=== PATIENT | male | born 1960 | race Caucasian/White ===

== ENCOUNTER → 2017-07-05 09:14 | Outpatient (CLI) | payer BC, SELFPAY ==
[2017-07-05 10:56] LABS: AST(SGOT) 22 U/L (15-37); Alanine Aminotransfer ALT/SGPT 34 U/L (16-61); Albumin, Serum 3.6 g/dL (3.2-5.0); Alkaline Phosphatase 88 U/L (45-117); Bilirubin, Direct 0.18 mg/dL (0.00-0.30); Cholesterol 85 mg/dL (200); Globulin 3.6 g/dL (2.2-4.2); High Density Lipoprotein 44 mg/dL; Protein, Total 7.2 g/dL (6.4-8.2); Triglycerides 63 mg/dL; Very Low Density Lipoprotein 13 mg/dL (5-40)
== END ==
PROVIDERS: Family Provider Internal Medicine; PCP Internal Medicine; Visit Provider Physician Assistant Medical
DX: E78.5 Hyperlipidemia, unspecified (principal); Z79.899 Other long term (current) drug therapy
CPT/HCPCS: 36415; 80061; 80076

== ENCOUNTER → 2018-01-10 10:18 | Outpatient (CLI) | payer BC, SELFPAY ==
[2018-01-10 12:03] LABS: AST(SGOT) 28 U/L (15-37); Alanine Aminotransfer ALT/SGPT 39 U/L (16-61); Albumin, Serum 3.7 g/dL (3.2-5.0); Alkaline Phosphatase 114 U/L (45-117); Bilirubin, Direct 0.19 mg/dL (0.00-0.30); Cholesterol 106 mg/dL (200); Globulin 3.9 g/dL (2.2-4.2); High Density Lipoprotein 43 mg/dL; Protein, Total 7.6 g/dL (6.4-8.2); Triglycerides 69 mg/dL; Very Low Density Lipoprotein 14 mg/dL (5-40)
== END ==
PROVIDERS: Family Provider Internal Medicine; PCP Internal Medicine; Referring Provider Physician Assistant Medical; Visit Provider Physician Assistant Medical
DX: E78.5 Hyperlipidemia, unspecified (principal); Z79.899 Other long term (current) drug therapy
CPT/HCPCS: 36415; 80061; 80076

== ENCOUNTER → 2018-01-12 12:56 | Outpatient (REF) | payer BC, SELFPAY | LOC: CVS 12:56 | PROVIDERS: Family Provider Internal Medicine; PCP Internal Medicine; Visit Provider Nurse Practitioner Family | DX: R00.2 Palpitations (principal); R42 Dizziness and giddiness | CPT/HCPCS: 93270 ==

== ENCOUNTER → 2018-08-18 | Outpatient (CLI) | payer BC, SELFPAY ==
[2018-01-09 16:19] VITALS: BMI 22.8
--- NOTE | 2018-08-18 15:37 | CT_ITS ---
STUDY: LOW DOSE CT LUNG CANCER SCREENING REASON FOR EXAM: Male, 58 years old. 38 pack-year history stopped 3 years ago. RADIATION DOSAGE (If Supplied By Facility): CTDIvol = ( 2.55 ) mGy, DLP = ( 102.68 ) mGycm TECHNIQUE: No contrast was administered. Low dose technique was utilized (average mAS-38 and kVp 120). 1.25 mm axial source images with a slice interval of 1.25-mm were reconstructed in lung windows. 2.5 mm axial source images with a slice interval of 2.5-mm were reconstructed in lung windows. 5.0 mm axial source images with a slice interval of 5.0-mm were reconstructed in soft tissue windows. Nodule measured using lung windows on PACS and/or independent workstation with automated measurement of minimum and maximum diameter. Nodule measurement reported as average diameter rounded to the nearest whole number. Growth is defined as an increase ins size of greater than 1.5 mm. COMPARISON: Chest, December 31, 2016. NODULES: Total lung nodules (excluding granulomas): 0 Emphysema: No Endobronchial lesion: None Aorta: Normal Coronary arteries: There are coronary artery calcifications. Heart: Normal in size Pulmonary artery: Normal Mediastinal nodes: None Other chest and abdominal findings: There are degenerative changes of the thoracic spine. CT/Low Dose CT Lung Screening IMPRESSION: Lung-RADS category 1 - Continue annual screening with LDCT in 12 months. IMPORTANT NOTES FOR USE: ACR Lung-RADS Version 1.0 Assessment Categories Release Date: July 26, 2013 Category: Coded 0-4 bases on nodule(s) with highest degree of suspicion. Negative screen is defined as categories 1 and 2; a positive screen is defined as categories 3 and 4. Category 3 and 4A nodules that are unchanged on interval CT should be coded as category 2, and individuals returned to screening in 12 months. Category 4X: Category 3 or 4 nodules with additional imaging findings that increase the suspicion of lung cancer, such as spiculation, GGN that doubles in size in 1 year, enlarged lymph notes, etc. Category Modifiers: S (significant finding unrelated to lung cancer) and C (prior history of treated lung cancer) may be added to the 0-4 Lung-RADS Electronically Signed: Jose Mares DO at 23:29 EDT Tel [phone], Service support ,
== END | disposition home or self-care (01) ==
LOC: CT 15:35
PROVIDERS: Family Provider Internal Medicine; PCP Internal Medicine; Visit Provider Nurse Practitioner Family
DX: Z72.0 Tobacco use (principal)
CPT/HCPCS: G0297

== ENCOUNTER → 2018-10-10 | Outpatient (CLI) | payer BC, SELFPAY ==
[2018-08-19 12:11] VITALS: BMI 24.0
[2018-10-10 10:42] LABS: AST(SGOT) 27 U/L (15-37); Alanine Aminotransfer ALT/SGPT 36 U/L (16-61); Albumin, Serum 3.7 g/dL (3.2-5.0); Alkaline Phosphatase 100 U/L (45-117); Bilirubin, Direct 0.13 mg/dL (0.00-0.30); Cholesterol 118 mg/dL (200); Globulin 3.7 g/dL (2.2-4.2); High Density Lipoprotein 43 mg/dL; Protein, Total 7.4 g/dL (6.4-8.2); Triglycerides 70 mg/dL; Very Low Density Lipoprotein 14 mg/dL (5-40)
== END | disposition home or self-care (01) ==
LOC: LAB 09:38
PROVIDERS: Family Provider Internal Medicine; PCP Internal Medicine; Referring Provider Internal Medicine Cardiovascular Disease; Visit Provider Internal Medicine Cardiovascular Disease
DX: E78.00 Pure hypercholesterolemia, unspecified (principal)
CPT/HCPCS: 36415; 80061; 80076

== ENCOUNTER → 2019-08-21 11:34 | Outpatient (CLI) | payer OTHER, SELFPAY ==
[2019-08-17 15:57] VITALS: BMI 24.2
[2019-08-21 12:27] LABS: AST(SGOT) 20 U/L (15-37); Alanine Aminotransfer ALT/SGPT 30 U/L (16-61); Albumin, Serum 3.6 g/dL (3.2-5.0); Alkaline Phosphatase 92 U/L (45-117); Cholesterol 126 mg/dL (200); Globulin 3.8 g/dL (2.2-4.2); High Density Lipoprotein 43 mg/dL; Protein, Total 7.4 g/dL (6.4-8.2); Triglycerides 86 mg/dL; Very Low Density Lipoprotein 17 mg/dL (5-40)
== END ==
PROVIDERS: PCP Internal Medicine; Referring Provider Internal Medicine Cardiovascular Disease; Visit Provider Internal Medicine Cardiovascular Disease
DX: E78.00 Pure hypercholesterolemia, unspecified (principal); I10 Essential (primary) hypertension; I25.10 Atherosclerotic heart disease of native coronary artery without angina pectoris; I25.2 Old myocardial infarction; R00.2 Palpitations; Z95.5 Presence of coronary angioplasty implant and graft
CPT/HCPCS: 36415; 80061; 80076

== ENCOUNTER → 2019-08-24 16:42 | Outpatient (CLI) | payer OTHER, SELFPAY ==
[2018-08-19 12:11] VITALS: BMI 24.0
[2019-08-24 16:00] VITALS: BMI 24.0
--- NOTE | 2019-08-24 16:42 | CT_ITS ---
STUDY: LOW DOSE CT LUNG CANCER SCREENING REASON FOR EXAM: Male, 59 years old. Former smoker. 35 pack-year history. RADIATION DOSAGE (If Supplied By Facility): CTDIvol = ( 2.01 ) mGy, DLP = ( 72.73 ) mGycm TECHNIQUE: No contrast was administered. Low dose technique was utilized (average mAS-38 and kVp 120). 1.25 mm axial source images with a slice interval of 1.25-mm were reconstructed in lung windows. 2.5 mm axial source images with a slice interval of 2.5-mm were reconstructed in lung windows. 5.0 mm axial source images with a slice interval of 5.0-mm were reconstructed in soft tissue windows. Nodule measured using lung windows on PACS and/or independent workstation with automated measurement of minimum and maximum diameter. Nodule measurement reported as average diameter rounded to the nearest whole number. Growth is defined as an increase ins size of greater than 1.5 mm. COMPARISON: August 18, 2018. NODULES: Total lung nodules (excluding granulomas): 0 Emphysema: No Endobronchial lesion: No Aorta: Normal Coronary arteries: Stable coronary artery calcifications versus stent.. Heart: Normal Pulmonary artery: Normal Mediastinal nodes: None Other chest and abdominal findings: Degenerative changes of the thoracic spine. CT/Low Dose CT Lung Screening IMPRESSION: Lung-RADS category 1 - Continue annual screening with LDCT in 12 months. IMPORTANT NOTES FOR USE: ACR Lung-RADS Version 1.0 Assessment Categories Release Date: July 26, 2013 Category: Coded 0-4 bases on nodule(s) with highest degree of suspicion. Negative screen is defined as categories 1 and 2; a positive screen is defined as categories 3 and 4. Category 3 and 4A nodules that are unchanged on interval CT should be coded as category 2, and individuals returned to screening in 12 months. Category 4X: Category 3 or 4 nodules with additional imaging findings that increase the suspicion of lung cancer, such as spiculation, GGN that doubles in size in 1 year, enlarged lymph notes, etc. Category Modifiers: S (significant finding unrelated to lung cancer) and C (prior history of treated lung cancer) may be added to the 0-4 Lung-RADS Electronically Signed: Jose Mares DO at 17:40 EDT Tel [phone], Service support ,
== END ==
PROVIDERS: PCP Internal Medicine; Referring Provider Nurse Practitioner Family; Visit Provider Nurse Practitioner Family
DX: Z12.2 Encounter for screening for malignant neoplasm of respiratory organs (principal); Z87.891 Personal history of nicotine dependence
CPT/HCPCS: G0297

== ENCOUNTER 2019-10-29 02:12 | Emergency (ER) | payer OTHER, SELFPAY ==
[2019-08-24 16:00] VITALS: BMI 24.0
[2019-10-29 02:13] VITALS: BP 155/78; PULSE 77; RESP 18; TEMP 36.8; O2SAT 97; BMI 25.0
--- NOTE | 2019-10-29 02:20 | RAD_ITS ---
STUDY: X-RAY - LEFT FOOT CLINICAL: Male, 59 years old. Left foot pain status post crush injury TECHNIQUE: 3 view(s) of the foot. COMPARISON: None. FINDINGS: Normal talus, calcaneus, and tarsal bones. Normal visualized subtalar, talonavicular, calcaneocuboid, tarsal and tarsometatarsal articulations. Normal metatarsi. There is mild degenerative change of the first metatarsophalangeal joint. Normal tibial and fibular sesamoid bones. Normal interphalangeal joint of the great toe. There is a transverse fracture through the neck of the proximal phalanx of the great toe. Normal second through fifth metatarsophalangeal joints. Normal interphalangeal joints and phalanges of the lesser toes. The soft tissue structures are unremarkable. RAD/Foot min 3 Views IMPRESSION: Transverse fracture through the neck of the proximal phalanx of the great toe. Electronically Signed: Tong Menjivar MD at 3:18 EDT Tel , Service support ,
--- NOTE | 2019-10-29 02:21 | ED.VISSUMM ---
- ER Visit Summary Date of Service: 10/29/19 Chief Complaint: [Injury to left foot] History of Present Illness: The patient is a 59 M [patient presents with an injury to his left foot that occurred while at work approximately 1:30 AM. Patient states he accidentally lowered a hand operated lift onto his foot. He complains of pain mostly to his great toe. He has been able to bear weight. Patient has history of coronary artery disease as well as hypertension and high cholesterol.] Physical Examination: [HEENT-PERRLA, EOMI. Cranial nerves II through XII grossly intact. TMs clear. Mucous membranes moist. No adenopathy. Cardiovascular-regular rate and rhythm without murmur or ectopy Lungs-clear to auscultation, chest wall stable without crepitus or subcu emphysema Abdomen-normoactive bowel sounds, soft, nontender, no rebound or rigidity, no peritoneal signs. Extremities-intact ?4, normal range of motion, normal pulses. Left foot-patient has diffuse tenderness over the IP joint of the great toe. No obvious deformity noted. There are some subtle ecchymosis noted to the plantar aspect of the toe laterally. Neurovascularly intact.] Test Results: [X-rays of the left foot obtained which was interpreted by myself as a fracture of the proximal phalanx of the great toe. Official report from radiology pending.] Emergency Department Course and Treatment: [Patient will have the great toe randal taped to the second toe and he will be given a postop shoe. Patient given crutches.] Treatment Plan: [Patient given work restrictions. Patient given a prescription for [place]stone for pain. Patient advised to follow-up with [facility] care in 5 to 7 days.] Disposition: [Discharged home in stable condition] Impression: [Left great toe proximal phalanx fracture] This note was generated with [employer] dictation software. It may contain incorrect words, spelling, and punctuation that were not noted in review of the chart prior to signing ED Disposition - Plan for ED Patient: Referrals: Lon Mcgarry MD [Primary Care Provider] -
--- NOTE | 2019-10-29 02:31 | DCINST.ED_ITS ---
ED Disposition - Plan for ED Patient: Instructions: ED Fx Toe Closed Prescriptions: Hydrocodone Bitart/Apap 5-325 [[place] 5MG-325MG] 1 tab PO Q4H PRN PRN 2 Days #10 tab PRN Reason: Pain Prescription Printed Referrals: Lon Mcgarry MD [Primary Care Provider] - [facility] [GROUP OF PHYSICIANS] - 5-7 Days
--- NOTE | 2019-10-29 02:31 | ED.DEP ---
ED Disposition - Plan for ED Patient: Instructions: ED Fx Toe Closed Prescriptions: Hydrocodone Bitart/Apap 5-325 [[place] 5MG-325MG] 1 tab PO Q4H PRN PRN 2 Days #10 tab PRN Reason: Pain Prescription Printed Referrals: Lon Mcgarry MD [Primary Care Provider] - [facility] [GROUP OF PHYSICIANS] - 5-7 Days
[2019-10-29 02:49] VITALS: BP 155/78; PULSE 77; RESP 18; O2SAT 97
== END 2019-10-29 02:49 | disposition home or self-care (01) ==
PROVIDERS: Emergency Provider Emergency Medicine; PCP Internal Medicine
DX: S92.412A Displaced fracture of proximal phalanx of left great toe, initial encounter for closed fracture (principal); W23.0XXA Caught, crushed, jammed, or pinched between moving objects, initial encounter; Y93.9 Activity, unspecified; Y92.9 Unspecified place or not applicable; I10 Essential (primary) hypertension; I25.10 Atherosclerotic heart disease of native coronary artery without angina pectoris; E78.00 Pure hypercholesterolemia, unspecified; Z79.82 Long term (current) use of aspirin; Z79.02 Long term (current) use of antithrombotics/antiplatelets; Z79.899 Other long term (current) drug therapy; Z87.891 Personal history of nicotine dependence
CPT/HCPCS: 73630; 99283

== ENCOUNTER → 2020-09-12 13:50 | Outpatient (CLI) | payer OTHER, SELFPAY ==
[2020-09-12 13:25] VITALS: BMI 25.7
--- NOTE | 2020-09-12 13:52 | CT_ITS ---
STUDY: LOW DOSE CT LUNG CANCER SCREENING REASON FOR EXAM: Male, 60 years old. Lung cancer screening -- 35 pack year history; former smoker;asymptomatic RADIATION DOSAGE (If Supplied By Facility): CTDIvol = ( 3.02 ) mGy, DLP = ( 110.23 ) mGycm TECHNIQUE: No contrast was administered. Low dose technique was utilized (average mAS-38 and kVp 120). 1.25 mm axial source images with a slice interval of 1.25-mm were reconstructed in lung windows. 2.5 mm axial source images with a slice interval of 2.5-mm were reconstructed in lung windows. 5.0 mm axial source images with a slice interval of 5.0-mm were reconstructed in soft tissue windows. Nodule measured using lung windows on PACS and/or independent workstation with automated measurement of minimum and maximum diameter. Nodule measurement reported as average diameter rounded to the nearest whole number. Growth is defined as an increase ins size of greater than 1.5 mm. COMPARISON: Comparison is made with prior examination of 08/24/2019. NODULES: No suspicious nodules are seen. Emphysema: Unremarkable. Minimal linear scarring at the right lung base. Endobronchial lesion: None Aorta: Unremarkable. Coronary arteries: Coronary artery calcification. Mediastinal nodes: Calcified right hilar and subcarinal lymph nodes. Other chest and abdominal findings: Degenerative changes of the thoracic spine. CT/Low Dose CT Lung Screening IMPRESSION: Lung-RADS category 2 - Continue annual screening with LDCT in 12 months. IMPORTANT NOTES FOR USE: ACR Lung-RADS Version 1.1 Assessment Categories Release Date: 2018 Category: Coded 0-4 bases on nodule(s) with highest degree of suspicion. Negative screen is defined as categories 1 and 2; a positive screen is defined as categories 3 and 4. Category 3 and 4A nodules that are unchanged on interval CT should be coded as category 2, and individuals returned to screening in 12 months. Category 4X: Category 3 or 4 nodules with additional imaging findings that increase the suspicion of lung cancer, such as spiculation, GGN that doubles in size in 1 year, enlarged lymph notes, etc. Category Modifiers: S (significant finding unrelated to lung cancer) Electronically Signed: Amarjit Valenzuela MD at 14:29 EDT , Service support ,
== END ==
PROVIDERS: PCP Internal Medicine; Referring Provider Nurse Practitioner Family; Visit Provider Nurse Practitioner Family
DX: Z12.2 Encounter for screening for malignant neoplasm of respiratory organs (principal); Z87.891 Personal history of nicotine dependence
CPT/HCPCS: 71271

== ENCOUNTER → 2020-09-15 06:56 | Outpatient (CLI) | payer OTHER, SELFPAY ==
[2020-09-05 12:46] VITALS: BMI 26.3
[2020-09-12 13:25] VITALS: BMI 25.7
--- NOTE | 2020-09-15 07:03 | ECHOD_ITS ---
Reason For Study: CAD/ASHD Procedure This was a 2D Doppler, Color Flow transthoracic echocardiogram. Exam performed in department. Left Ventricle Normal LV size. Left ventricular systolic function is normal. The estimated ejection fraction is 65 %. Stage 1 diastolic dysfunction. Right Ventricle Normal RV size. Normal systolic function. Atria Normal left atrium. Normal right atrium. Mitral Valve Normal mitral valve. Tricuspid Valve Normal tricuspid valve. Aortic Valve Normal aortic valve. Trisinus/trileaflet aortic valve. Pulmonic Valve Normal pulmonic valve. Great Vessels Normal aortic root. The pulmonary artery is normal size. Normal inferior vena cava. Pericardium/Pleural No pericardial effusion. MMode/2D Measurements & Calculations LVIDd: 4.9 cm IVSd: 0.90 cm Ao root diam: 2.9 cm LVIDs: 3.4 cm LVPWd: 0.85 cm RVDd: 2.9 cm FS: 30.9 % LAV(MOD-bp): 28.8 ml LVAd ap4: 24.2 cm2 SV(MOD-sp4): 36.6 ml LAV(MOD-bp) Indexed: 15.7 ml/m2 LVLd ap4: 7.3 cm LAV(MOD-sp2): 31.6 ml EDV(MOD-sp4): 66.9 ml LAV(MOD-sp4): 24.0 ml EDV(sp4-el): 67.8 ml LVAs ap4: 14.6 cm2 LVLs ap4: 6.3 cm ESV(MOD-sp4): 30.3 ml ESV(sp4-el): 28.9 ml EF(MOD-sp4): 54.7 % EF(sp4-el): 57.3 % SV(sp4-el): 38.9 ml LA A4 area: 11.7 cm2 LA dimension(2D): 3.1 cm RA A4 area: 10.2 cm2 Doppler Measurements & Calculations MV E max sergio: 74.4 cm/sec Lat Peak E' Sergio: 8.3 cm/sec Med Peak E' Sergio: 7.9 cm/sec MV A max sergio: 83.4 cm/sec E/E' lat: 8.9 E/E' med: 9.4 MV E/A: 0.89 Ao V2 max: 125.5 cm/sec LV V1 max: 95.9 cm/sec PA V2 max: 78.3 cm/sec Ao max P.3 mmHg LV V1 max P.7 mmHg Ao V2 mean: 86.7 cm/sec Ao mean P.3 mmHg Ao V2 VTI: 25.9 cm ECHO/Echo Complete Interpretation Summary Normal LV size. Left ventricular systolic function is normal. The estimated ejection fraction is 65 %. Stage 1 diastolic dysfunction. Structurally normal valves. Ordering Physician: Irvin Le Referring Physician: Lon Mcgarry Performed By: Mena Padron, LESVIA, RVT
--- NOTE | 2020-09-15 14:28 | STRESSREP_ITS ---
Stress Test Report Exercise myocardial perfusion stress test. 60-year-old male with a history of coronary artery disease. Stress protocol: Resting EKG demonstrates sinus bradycardia with a rate of 56 bpm. Resting blood pressure is 132/88 mmHg. The patient exercised according to the regular Willie protocol for total duration of 8 minutes. The maximum heart rate attained 157 bpm which was 98% of maximum predicted heart rate the maximum workload was 10.1 metabolic equivalents. Patient completed 2 minutes into stage III of the Willie protocol. The test was terminated due to leg fatigue. At rest no ST or T wave changes noted to suggest ischemia and at peak exercise upsloping ST changes were noted with did not meet the criteria for ischemia. No clinical angina was noted. The peak blood pressure was 182/78 mmHg. Myocardial perfusion protocol. 12.0 mCi of technetium 99m sestamibi was injected at rest. The patient exercised according to regular Willie protocol for 8 minutes. At peak exercise 36.0 mCi of technetium 99m sestamibi was injected stress images were obtained stress and rest images were reconstructed and compared in the short axis vert ical long and horizontal long axis. Gated images were also obtained per Perfusion SPECT analysis: Review of the stress images demonstrated normal uptake of tracer noted in all areas of the myocardium. The resting images similarly demonstrated normal uptake of tracer noted in all areas of the myocardium. No areas of reversibility are noted suggest ischemia and no previous infarct is noted. Gated SPECT analysis: The gated ejection fraction is 71%. Conclusion: Normal exercise myocardial perfusion stress test at a high workload. Preserved ejection fraction.
== END ==
PROVIDERS: PCP Internal Medicine; Referring Provider Internal Medicine Cardiovascular Disease; Visit Provider Internal Medicine Cardiovascular Disease
DX: I25.10 Atherosclerotic heart disease of native coronary artery without angina pectoris (principal); Z95.5 Presence of coronary angioplasty implant and graft; I10 Essential (primary) hypertension
CPT/HCPCS: 78452; 93017; 93306; A9500; A4216

== ENCOUNTER → 2021-10-23 | Outpatient (CLI) | payer BC, SELFPAY ==
--- NOTE | 2021-10-23 14:42 | CT_ITS ---
STUDY: LOW DOSE CT LUNG CANCER SCREENING REASON FOR EXAM: Male, 61 years old. Lung cancer screening -- and gt;30 pk yr hx; asymptomatic; former smoker RADIATION DOSAGE (If Supplied By Facility): CTDIvol = ( 2.39 ) mGy, DLP = ( 89.06 ) mGycm TECHNIQUE: No contrast was administered. Low dose technique was utilized (average mAS-38 and kVp 120). 1.25 mm axial source images with a slice interval of 1.25-mm were reconstructed in lung windows. 2.5 mm axial source images with a slice interval of 2.5-mm were reconstructed in lung windows. 5.0 mm axial source images with a slice interval of 5.0-mm were reconstructed in soft tissue windows. COMPARISON: Comparison is made with prior study dated 10/12/2020. NODULES: No suspicious nodules are seen. Emphysema: Mild degree of increased markings at the right lung base suggestive of scarring. This is unchanged. Endobronchial lesion: None Aorta: Minimal atherosclerotic plaque calcification of the aortic arch. CORONARY ARTERIES: Coronary artery calcification is seen. Heart: Unremarkable Pulmonary artery: Unremarkable. Mediastinal nodes: Calcified right and subcarinal lymph nodes. Other chest and abdominal findings: CT/Low Dose CT Lung Screening IMPRESSION: Lung-RADS category 2 - Continue annual screening with LDCT in 12 months. IMPORTANT NOTES FOR USE: ACR Lung-RADS Version 1.1 Assessment Categories Release Date: 2018 Category: Coded 0-4 bases on nodule(s) with highest degree of suspicion. Negative screen is defined as categories 1 and 2; a positive screen is defined as categories 3 and 4. Category 3 and 4A nodules that are unchanged on interval CT should be coded as category 2, and individuals returned to screening in 12 months. Category 4X: Category 3 or 4 nodules with additional imaging findings that increase the suspicion of lung cancer, such as spiculation, GGN that doubles in size in 1 year, enlarged lymph notes, etc. Category Modifiers: S (significant finding unrelated to lung cancer) Electronically Signed: Amarjit Valenzuela MD at 15:21 EDT ,
== END | disposition home or self-care (01) ==
PROVIDERS: PCP Internal Medicine; Referring Provider Nurse Practitioner Family; Visit Provider Nurse Practitioner Family
DX: Z87.891 Personal history of nicotine dependence (principal); Z12.2 Encounter for screening for malignant neoplasm of respiratory organs
CPT/HCPCS: 71271

== ENCOUNTER → 2022-12-10 | Outpatient (CLI) | payer BC, SELFPAY ==
--- NOTE | 2022-12-10 14:08 | CT_ITS ---
STUDY: LOW DOSE CT LUNG CANCER SCREENING REASON FOR EXAM: Male, 62 years old. 20+ pack year history of smoking, previous smoker RADIATION DOSAGE (If Supplied By Facility): CTDIvol = ( 2.39 ) mGy, DLP = ( 89.36 ) mGycm TECHNIQUE: No contrast was administered. Low dose technique was utilized (average mAS-38 and kVp 120). 1.25 mm axial source images with a slice interval of 1.25-mm were reconstructed in lung windows. 2.5 mm axial source images with a slice interval of 2.5-mm were reconstructed in lung windows. 5.0 mm axial source images with a slice interval of 5.0-mm were reconstructed in soft tissue windows. COMPARISON: 10/03/2021 NODULES: Pectus excavatum deformity again noted. Lung windows show the lungs to be normally expanded. There is no organized focal trait, effusion, or suspicious noncalcified mass or nodule. Stable interstitial changes noted in the lung bases with nonspecific pleural thickening. Stable mild underlying emphysema. Limited soft tissue windows demonstrate a normal-appearing thyroid gland. No suspicious axillary, mediastinal, or perihilar adenopathy. There are calcified coronary vessels. Limited cuts through the upper abdomen do not show a suspicious abnormality. Bony structures show degenerative change CT/Low Dose CT Lung Screening IMPRESSION: Lung-RADS category 2 - Continue annual screening with LDCT in 12 months. IMPORTANT NOTES FOR USE: ACR Lung-RADS Version 1.1 Assessment Categories Release Date: 2018 Category: Coded 0-4 bases on nodule(s) with highest degree of suspicion. Negative screen is defined as categories 1 and 2; a positive screen is defined as categories 3 and 4. Category 3 and 4A nodules that are unchanged on interval CT should be coded as category 2, and individuals returned to screening in 12 months. Category 4X: Category 3 or 4 nodules with additional imaging findings that increase the suspicion of lung cancer, such as spiculation, GGN that doubles in size in 1 year, enlarged lymph notes, etc. Category Modifiers: S (significant finding unrelated to lung cancer) Electronically Signed: Lan Montoya MD at 16:10 EDT ,
== END | disposition home or self-care (01) ==
PROVIDERS: PCP Internal Medicine; Referring Provider Nurse Practitioner Family; Visit Provider Nurse Practitioner Family
DX: Z12.2 Encounter for screening for malignant neoplasm of respiratory organs (principal); Z87.891 Personal history of nicotine dependence
CPT/HCPCS: 71271

== ENCOUNTER → 2023-05-07 | Outpatient (CLI) | payer BC, SELFPAY ==
[2023-05-07 16:15] LABS: Hematocrit 44.5 % (40-54); Hemoglobin 14.4 g/dL (13.0-16.5); Mean Corp Hgb Conc 32.4 g/dL (32-36); Mean Corpuscular Volume 89.7 fL (80-94); Mean Platelet Vol. 11.5 fl (6.2-12.0); Platelet Count 214 K/mm3 (150-450); RBC Distribution Width CV 13.6 % (11.6-14.6); RBC Distribution Width SD 44.5 fl (35.1-43.9); Red Blood Count 4.96 M/mm3 (4.6-6.2); White Blood Count 7.1 K/mm3 (4.4-11.0)
[2023-05-07 17:28] LABS: Anion Gap 1 (5-15); BUN 11 mg/dL (7-18); BUN/Creat Ratio 11.3 RATIO (10-20); Calcium,Total 9.3 mg/dL (8.5-10.1); Chloride 110 mmol/L (98-107); Creatinine, Serum 0.97 mg/dL (0.70-1.30); EST Glomerular Filtration Rate 83 mL/min (>60); Est Glom Filt Rate - Afr Amer 100 mL/min (>60); Glucose 71 mg/dL (74-106); Magnesium 2.5 mg/dL (1.6-2.6); Potassium 3.7 mmol/L (3.5-5.1); Sodium Level 141 mmol/L (136-145)
--- OUTSIDE RECORDS SUMMARY | 2023-05-07 18:57 | XMS RPT_ITS | CCD ---
Author Name Unknown Address [id number] [place] [address] Organization [facility] Care Team Providers Care Blood Bank Coordinator Name Role Phone Debra CLAROS, Leslee Veliz Unavailable LILY Saldana, Leslee Vargas Unavailable Lon Gilmore MD Primary Care Provider [phone] LON GILMORE Primary Care Unavailable LON GILMORE Referring Unavailable CAMILLE MONDRAGON Attending Unavailable LON GILMORE Referring Unavailable LON GILMORE Primary Care Unavailable LON GILMORE Primary Care Unavailable LON GILMORE Referring Unavailable LON GILMORE Attending Unavailable Medications Completed/Discontinued Medications Medication Drug Class(es) Dates Sig (Normalized) Sig (Original) aspirin 81 mg delayed release oral tablet (7 sources) Platelet Aggregation Inhibitor, Nonsteroidal Anti-inflammatory Drug Start: 02-28-2015 take 1 tablet by mouth once daily ASPIRIN 81 MG TABS One tablet by mouth daily ASPIRIN [id number] Joan Dobbins RN Problems Active Problems Problem Classification Problem Date Documented Date Episodic/Chronic Acute myocardial infarction (2 sources) Acute anteroseptal myocardial infarction; Translations: [ST elevation (STEMI) myocardial infarction involving other coronary artery of anterior wall] Onset: 02-28-2015 02-28-2015 Chronic Adjustment disorders (5 sources) Adjustment disorder with mixed anxiety and depressed mood; Translations: [Adjustment disorder with mixed anxiety and depressed mood] Onset: 04-24-2012 Chronic Cardiac arrest and ventricular fibrillation (4 sources) Ventricular fibrillation; Translations: [Cardiac arrest due to cardiac disorder] Onset: 02-28-2015 02-28-2015 Chronic Coronary atherosclerosis and other heart disease (17 sources) Angina pectoris; Translations: [Coronary arteriosclerosis in [place] artery] Onset: 02-28-2015 07-02-2016 Chronic Disorders of lipid metabolism (6 sources) Hyperlipidemia; Translations: [Hyperlipidemia, unspecified] Onset: 02-28-2015 02-28-2015 Chronic Essential hypertension (7 sources) Hypertensive disorder; Translations: [Essential hypertension] Onset: 02-28-2015 02-28-2015 Chronic Other liver diseases (1 source) Abnormal levels of other serum enzymes; Translations: [Elevated alkaline phosphatase level] Onset: 02-27-2022 Episodic Other screening for suspected conditions (not mental disorders or infectious disease) (2 sources) Patient encounter status; Translations: [Encounter for screening for malignant neoplasm of colon] Episodic Other upper respiratory disease (3 sources) Allergic rhinitis; Translations: [Allergic rhinitis, unspecified] Onset: 09-06-2010 03-26-2021 Chronic Unclassified (2 sources) Long-term drug therapy; Translations: [Other half-way (current) drug therapy] Onset: 02-28-2015 02-28-2015 Past or Other Problems Problem Classification Problem Date Documented Da te Episodic/Chronic Conditions associated with dizziness or vertigo (2 sources) Dizziness; Translations: [Dizziness and giddiness] Onset: 01-09-2017 01-09-2017 Episodic Other ear and sense organ disorders (3 sources) Bilateral tinnitus; Translations: [Tinnitus, bilateral] Onset: 09-18-2017 09-18-2017 Episodic Residual codes; unclassified (2 sources) Family history of sudden ; Translations: [Family history of other specified conditions] 02-28-2015 Episodic Residual codes; unclassified (2 sources) Family history of ischemic heart disease and other diseases of the circulatory system; Translations: [Family history of ischemic heart disease and other diseases of the circulatory system] 02-28-2015 Episodic Residual codes; unclassified (2 sources) Family history of stroke; Translations: [Family history of stroke] 03-23-2015 Episodic Results Test Name Value Interpretation Reference Range Facil ity Vital Signs Date Time Vital Sign Value Performing Clinician Quan hernandez 08-16-2021 16:28-0400 Body temperature 97.7 [degF] Lon Gilmore MD Work Phone: [facility] 08-16-2021 16:28-0400 Body weight 76.66 kg Lon Gilmore MD Work Phone: [facility] 08-16-2021 16:28-0400 Diastolic blood pressure 74 mm[Hg] Lon Gilmore MD Work Phone: [facility] 08-16-2021 16:28-0400 Heart rate 68 /min Lon Gilmore MD Work Phone: [facility] 08-16-2021 16:28-0400 Respiratory rate 16 /min Lon Gilmore MD Work Phone: [facility] 08-16-2021 16:28-0400 Systolic blood pressure 124 mm[Hg] Lon Gilmore MD Work Phone: [facility] 01-09-2017 15:34-0400 BMI (Body Mass Index) 21.79 kg/m2 [facility] Work Phone: 01-09-2017 15:34-0400 BP Diastolic 70 mm[Hg] Leslee Richardson RN [facility] Work Phone: 01-09-2017 15:34-0400 BP Systolic 130 mm[Hg] Leslee Richardson RN [facility] Work Phone: 01-09-2017 15:34-0400 Pulse (Heart Rate) 56 /min [facility] Work Phone: 01-09-2017 15:34-0400 Weight 61.24 kg Leslee Richardson RN [facility] Work Phone: 07-04-2016 10:40-0400 Height 167.64 cm [facility] Work Phone: 07-04-2016 10:40-0400 Respiratory Rate 12 /min [facility] Work Phone: 03-05-2016 14:13-0500 Heart rate 60 /min [facility] Work Phone: 03-05-2016 14:00-0500 BSA (Body Surface Area) 1.69 m2 Leslee Richardson RN [facility] Work Phone: Encounters Encounter Date Encounter Type Care Provider Facility Start: 02-27-2022 End: 02-28-2022 ambulatory CAMILLE OLDER Facility:[facility] Start: 02-16-2022 End: 02-16-2022 ambulatory LON GILMORE Facility:[facility] Start: 09-05-2021 Telephone encounter Lon arreola MD Work Phone: [facility] Procedures Date Procedure Procedure Detail Performing Clinician Start: 08-16-2021 Adult depression scr eening assessment Lon Gilmore MD Work Phone: Start: 01-09-2017 End: 01-15-2017 *Hepatic Function Panel Leslee olguin PA-C Work Phone: Start: 01-09-2017 End: 01-09-2017 ICU NURSE Leslee Saldana PA-C Work Phone: Start: 01-09-2017 End: 01-09-2017 Follow Up Appt 6 months Leslee olguin PA-C Work Phone: Start: 01-09-2017 End: 01-15-2017 Lipid 1996 panel - Serum or Plasma Leslee Saldana PA-C Work Phone: Start: 12-31-2016 End: 01-09-2017 *Hepatic Function Panel Leslee olguin PA-C Work Phone: Start: 12-31-2016 End: 01-09-2017 Lipid 1996 panel - Serum or Plasma Leslee Saldana PA-C Work Phone: Start: 07-04-2016 End: 12-27-2016 Follow Up Appt 6 months Sam Eduardo Start: 07-04-2016 End: 12-27-2016 MMSam Le MD Start: 07-01-2016 End: 07-01-2016 *Hepatic Function Panel Leslee olguin PA-C Work Phone: Start: 07-01-2016 End: 07-01-2016 Lipid 1996 panel - Serum or Plasma Leslee Saldana PA-C Work Phone: Start: 03-05-2016 End: 03-05-2016 Ecg routine ecg w/least 12 lds w/i&r Leslee Saldana PA-C Work Phone: Start: 03-05-2016 End: 03-06-2016 Nuclear stress test -exercise Leslee Saldana PA-C Work Phone: Start: 01-04-2016 End: 01-08-2016 *Hepatic Function Panel Ruel Bah Morales BIOLOGY TEACHER -C Start: 01-04-2016 End: 01-04-2016 ICU NURSE Ruel Bah Morales BIOLOGY TEACHER-C Start: 01-04-2016 End: 01-04-2016 Follow Up Appt 6 months Ruel Niurka Morales BIOLOGY TEACHER -C Start: 01-04-2016 End: 01-08-2016 Lipid 1996 panel - Serum or Plasma Ruel Bah Morales BIOLOGY TEACHER-C Start: 07-06-2015 End: 07-17-2015 Echocardiography Irvin Le MD Start: 07-06-2015 End: 07-06-2015 Follow Up Appt 6 months Sam Eduardo Start: 07-06-2015 End: 07-06-2015 MM Irvin Le MD Start: 03-23-2015 End: 07-17-2015 *Hepatic Function Panel Sam Eduardo Start: 03-23-2015 End: 06-06-2015 Cardiac Rehab Irvin Le MD Start: 03-23-2015 End: 03-23-2015 Ecg routine ecg w/least 12 lds w/i&r Irvin Le MD Start: 03-23-2015 End: 03-23-2015 Follow Up Appt 3 months Sam Eduardo Start: 03-23-2015 End: 07-17-2015 Lipid 1996 panel - Serum or Plasma Irvin Le MD Start: 03-23-2015 End: 03-23-2015 MMM Irvin Le MD Start: 02-28-2015 Placement of stent i n coronary artery Coronary stent Leslee Richardson RN Start: 11-13-2010 Colonoscopy Lon Raymundo MD Work Phone: Plan of Treatment Date Care Activity Detail Author Start: 12-05-2030 Urine microalbumin profile DTAP,TDAP,TD (3 - Td or Tdap) [facility] Start: 12-02-2025 LIPID SCREEN LIPID SCREEN [facility] Start: 12-03-2023 DIABETES SCREEN DIABETES SCREEN [facility] Start: 07-16-2023 PROSTATE CANCER SCREENING DISCUSSION PROSTATE CANCER SCREENING DISCUSSION [facility] Start: 08-16-2022 Adult depression screening assessment DEPRESSION SCREENING [facility] Start: 08-16-2022 ANNUAL PCP TEAM CHRONIC DISEASE VISIT ANNUAL PCP TEAM CHRONIC DISEASE VISIT [facility] Start: 08-16-2022 BP CONTROLLED (<130/80) BP CONTROLLED (<130/80) [facility] Start: 01-16-2022 End: 03-18-2022 CBC panel - Blood by Automated count CBC Lab Routine Atherosclerosis of [place] coronary artery of [place] heart without angina pectoris Expected: 01/16/2022 (Approximate), Expires: 03/18/2022 [facility] Work Phone: Immunizations Immunization Date Immunization Notes Care Provider Fa cility 12-05-2020 tetanus and diphther ia toxoids, adsorbed, preservative free, for adult use (5 Lf of tetanus toxoid and 2 Lf of diphtheria toxoid) Lon Gilmore MD Work Phone: [facility] 08-27-2018 zoster vaccine recombinant Lon Gilmore MD Work Phone: [facility] 02-27-2018 influenza, injectabl e, quadrivalent, contains preservative Lon Gilmore MD Work Phone: [facility] 07-12-2017 zoster vaccine recombinant Lon Gilmore MD Work Phone: [facility] Work Phone: 04-29-2017 influenza, injectabl e, quadrivalent, contains preservative Lon Gilmore MD Work Phone: [facility] Work Phone: 07-06-2015 pneumococcal polysaccharide vaccine, 23 valent Lon Gilmore MD Work Phone: [facility] 09-06-2010 tetanus toxoid, redu isael diphtheria toxoid, and acellular pertussis vaccine, adsorbed Lon Gilmore MD Work Phone: [facility] Work Phone: Payers Date Payer Category Payer Unknown [employer] PPO [id number] 2021-Present [phone] [id number] [place] [address] PPO [id number] 2020 Unknown [id number] Social History Date Type Detail Facility Start: 07-06-2015 [facility] Work Phone: End: 02-19-2015 History of tobacco use Current smoker [facility] Work Phone: End: 02-19-2015 History of tobacco use Cigarette Smoker [facility] Work Phone: Start: 07-06-2015 Cigarettes smoked current (pack per day) - Reported 1 [facility] Start: 07-06-2015 Tobacco use and exposure Smoke less tobacco non-user [facility] Work Phone: Start: 08-16-2021 Alcohol intake Current non-dr kidney trimmer of alcohol (finding) [facility] Start: 08-11-2021 History SDOH Alcohol Frequency 1 [facility] Start: 05-10-2020 History SDOH Alcohol Std Drinks 98 [facility] Start: 08-11-2021 History SDOH Social Connections Phone 2 [facility] Start: 08-11-2021 History SDOH Social Connections Living 5 [facility] Start: 08-11-2021 History SDOH Physica l Activity DPW 0 [facility] Start: 08-11-2021 History SDOH Financial 4 [facility] Start: 05-10-2020 Education 12 [facility] Start: 1960 Sex Assigned At Male [facility] Start: 08-06-2021 End: 08-16-2021 Exposure to SARS-CoV-2 (event) Not sure [facility] Work Phone: Clinical Notes 05-13-2020 to 02-27-2022 Telephone Encounter - Phoebe Rahman - 09/28/2021 10:44 AM EDTTelephone Encounter - Lon Gilmore MD - 09/06/2021 10:26 AM EDTTelephone Encounter - Phoebe Rahman - 09/05/2021 2:21 PM EDT Note Date & Type Note Facility 02-27-2022 Note HNO ID: [id number] Author: Camille Mondragon APRN.WAREHOUSE CONSULTANT Service: ? Author Type: Nurse Practitioner Type: Progress Notes Filed: 02/27/2022 5:57 PM Note Text: CC: Patient presents with: F/U 6 months HPI Ladonna Fairchild is a 61 year old male who presents today for above. Hyperlipidemia Taking statin as prescribed. Denies side effects. Exercise: denies regular aerobic exercise. Diet: Watches diet for salt (salty snacks, added salt, processed frozen/canned foods), sugary/sweet snacks, unhealthy fats: most of the time Essential hypertension Medication changes:No Taking all medications as prescribed: Yes Side effects: No Home BP's: No Denies: headache, chest pain, palpitations, dyspnea and peripheral edema. Last 3 Encounter BP Readings: Date: BP: 02/27/2022 122/70 08/16/2021 124/74 12/05/2020 128/76 Adjustment reaction with anxiety and depression Doing well on current dose of Lexapro. Denies side effects. Denies anhedonia, feeling down, depressed, hopeless, anxious REVIEW OF SYSTEMS See HPI PAST MEDICAL HISTORY Diagnosis Date Adjustment reaction with anxiety and depression 04/24/2012 Atherosclerosis of [place] coronary artery of [place] heart with angina pectoris (HCC) 07/06/2015 Atherosclerosis of [place] coronary artery of [place] heart without angina pectoris 07/06/2015 Benign neoplasm of colon BPH w/o urinary obs/LUTS 09/06/2010 Cervicalgia of caqgdalu-gmbifgj-ufybb region 09/18/2017 Chronic rhinitis Essential hypertension 02/28/2015 Hyperlipidemia 07/06/2015 Internal hemorrhoids without mention of complication 11/13/2010 Other specified forms of hearing loss Right side. SHOULDER REGION DIS NEC 06/03/2008 ST elevation (STEMI) myocardial infarction (HCC) 02/19/2015 Tobacco use disorder Unspecified disorder of tympanic membrane Chronic perforation, Left TM PAST SURGICAL HISTORY Procedure Laterality Date COLONOSCOPY FLX DX W/COLLJ SPEC WHEN PFRMD 11/13/2010 Colonoscopy CORONARY STENT INITIAL 02/19/2015 Xience, proximal LAD LEFT HEART CATH,PERCUTANEOUS 02/19/2015 Cardiac cath, L heart TONSILLECTOMY PRIMARY/SECONDARY Tonsillectomy ALLERGIES Patient has no known allergies. MEDICATIONS peg 3350-Electrolytes (GOLYTELY) 236-22.74-6.74 -5.86 gram suspension Take as directed escitalopram oxalate (LEXAPRO) 5 mg tablet Take 1 tablet by mouth once daily. metoprolol succinate ER (TOPROL XL) 25 mg 24 hr tablet Take 25 mg by mouth once daily. atorvastatin (LIPITOR) 40 mg tablet Take 1 tablet by mouth daily at bedtime. For cholesterol. Dr. Le clopidogrel (PLAVIX) 75 mg tablet Take 75 mg by mouth once daily. pantoprazole DR (PROTONIX) 40 mg tablet Take 1 tablet by mouth daily before breakfast. Take on empty stomach, 1/[address] Le aspirin, enteric coated (ASPIR-LOW) 81 mg EC tablet Take 1 tablet by mouth once daily. FAMILY HISTORY Problem Relation Age of Onset Stroke Mother age 86 Heart Father congestive heart failure, age 45 Colon Polyps Sister Cancer Brother spine cancer Prostate Cancer Brother Heart Attack Brother Stroke Brother Social History Tobacco Use Smoking status: Former Packs/day: 1.00 Years: 30.00 Pack years: 30.00 Types: Cigarettes Quit date: 02/19/2015 Years since quittin.0 Smokeless tobacco: Never Substance Use Topics Alcohol use: No Drug use: No PHYSICAL EXAM BP 122/70 Pulse 64 Resp 16 Wt 78.5 kg (173 lb) BMI 28.57 kg/m? General Appearance: well appearing, in no acute distress, alert Lungs: Lungs clear to auscultation. No wheezing, rhonchi, rales. Heart: RRR without murmur, gallop, or rubs. No ectopy Health maintenance reviewed with patient: COLORECTAL CANCER SCREENING due on 11/13/2020 DEPRESSION ASSESSMENT Never done LUNG CANCER SCREENING due on 09/12/2021 INFLUENZA(1) due on 09/27/2022 COVID-19 VACCINE(1) due on 02/27/2023 ANNUAL PCP TEAM CHRONIC DISEASE VISIT due on 08/16/2022 BP CONTROLLED (<130/80) due on 08/16/2022 LDL CHOLESTEROL due on 02/16/2023 PROSTATE CANCER SCREENING DISCUSSION due on 07/16/2023 DIABETES SCREEN due on 02/16/2025 LIPID SCREEN due on 02/16/2027 DTAP,TDAP,TD(3 - Td or Tdap) due on 12/05/2030 HEPATITIS C SCREENING Completed HIV SCREENING Completed SHINGRIX VACCINE Completed DATA REVIEWED: Most recent labs ASSESSMENT/PLAN: 1. Essential hypertension - ICD9: 401.9, ICD10: I10 (primary diagnosis) - good control - Continue current medication(s) - Recommended regular aerobic exercise. - Recommend home blood pressure monitoring, to bring results in on next visit - Goal of BP <130/80 2. Elevated alkaline phosphatase level - ICD9: 790.5, ICD10: R74.8 Mild elevation. Recheck in 3 months - COMP METABOLIC PANEL 3. Adjustment reaction with anxiety and depression - ICD9: 309.28, ICD10: F43.23 Stable - ESCITALOPRAM 5 MG TABLET 4. Other hyperlipidemia - ICD9: 272.4, ICD10: E78.49 Good control. Continue Lipitor Pre (more content not included)... [facility] 09-28-2021 Miscellaneous Notes Patient declined ASSESSMENT/PLAN: 1. Special screening for malignant neoplasms, colon - ICD9: V76.51, ICD10: Z12.11 - CONSULT TO GENERAL SURGERY Lon Gilmore MD PATIENT IS NOT OK FOR OPEN ACCESS, Will need office visit prior. 1st attempt of scheduling colonoscopy. Left VM, will need consult. 08/17 2nd failed attempt of scheduling colonoscopy. Left VM, will need consult. 08/30 3rd failed attempt. mailed colonoscopy letter IS documented in this encounter [facility] 08-30-2021 Note HNO ID: [id number] Author: Layton Bey Service: ? Author Type: ? Type: Progress Notes Filed: 08/30/2021 1:29 PM Note Text: 2nd failed attempt to schedule colonoscopy. Patient will need consult. Left VM and sent [email or web address] message. [facility] 08-20-2021 Miscellaneous Notes The following approved medication requests have been transmitted electronically. Signed Prescriptions Disp Refills peg 3350-Electrolytes (GOLYTELY) 236-22.74-6.74 -5.86 gram suspension 4000 mL 0 Sig: Take as directed Authorizing Provider: CAMILLE MONDRAGON APRN.CNP Patient needs [place] prep sent to [facility] for colonoscopy please. Thank you. documented in this encounter [facility] 08-17-2021 Note HNO ID: [id number] Author: Phoebe Rahman Service: ? Author Type: ? Type: Progress Notes Filed: 08/17/2021 10:04 AM Note Text: .1st failed attempt to contact patient. Left message to return call to scheduled colonoscopy. Patient needs a consult Phoebe Rahman [facility] 08-16-2021 Note HNO ID: [id number] Author: Lon Gilmore MD Service: ? Author Type: Physician Type: Progress Notes Filed: 08/16/2021 5:50 PM Note Text: This note was created using Texere[employer]. Subjective Ladonna Fairchild is a 61 year old male. Anxiety and depression were controlled. His cardiovascular issues were controlled, and stable. He was not able to proceed with colonoscopy last year due to job and insurance change. He was willing to do so now. Review of Systems Constitutional: Negative. Respiratory: Negative. Cardiovascular: Negative. Gastrointestinal: Negative. Psychiatric/Behavioral: Negative. ACTIVE PROBLEM LIST Chronic Allergic Rhinitis Adjustment Reaction With Anxiety and Depression Atherosclerosis of [place] Coronary Artery of [place] Heart Without Angina Pectoris Hyperlipidemia Tinnitus, Bilateral Essential Hypertension PAST SURGICAL HISTORY Procedure Laterality Date - COLONOSCOPY FLX DX W/COLLJ SPEC WHEN PFRMD 11/13/2010 Colonoscopy - CORONARY STENT INITIAL 02/19/2015 Xience, proximal LAD - LEFT HEART CATH,PERCUTANEOUS 02/19/2015 Cardiac cath, L heart - TONSILLECTOMY PRIMARY/SECONDARY Tonsillectomy Social History Tobacco Use - Smoking status: Former Smoker Packs/day: 1.00 Years: 30.00 Pack years: 30.00 Types: Cigarettes Quit date: 02/19/2015 Years since quittin.4 - Smokeless tobacco: Never Used Substance Use Topics - Alcohol use: No - Drug use: No Current Outpatient Medications Medication Sig - escitalopram oxalate (LEXAPRO) 5 mg tablet Take 1 tablet by mouth once daily. - metoprolol succinate ER (TOPROL XL) 25 mg 24 hr tablet Take 25 mg by mouth once daily. - atorvastatin (LIPITOR) 40 mg tablet Take 1 tablet by mouth daily at bedtime. For cholesterol. Dr. Le - clopidogrel (PLAVIX) 75 mg tablet Take 75 mg by mouth once daily. - pantoprazole DR (PROTONIX) 40 mg tablet Take 1 tablet by mouth daily before breakfast. Take on empty stomach, 1/[address] Le - aspirin, enteric coated (ASPIR-LOW) 81 mg EC tablet Take 1 tablet by mouth once daily. No current facility-administered medications for this visit. Objective BP 124/74 (BP Site: Left Arm, BP Position: Sitting, BP Cuff Size: Large Adult) Pulse 68 Temp 36.5 ?C (97.7 ?F) (Temporal Artery) Resp 16 Wt 76.7 kg (169 lb) BMI 27.91 kg/m? Physical Exam Constitutional: Appearance: Normal appearance. Cardiovascular: Rate and Rhythm: Normal rate and regular rhythm. Heart sounds: No murmur heard. No gallop. Pulmonary: Breath sounds: Normal breath sounds. Abdominal: Palpations: Abdomen is soft. Tenderness: There is no abdominal tenderness. Musculoskeletal: Right lower leg: No edema. Left lower leg: No edema. Neurological: Mental Status: He is alert. Assessment and Plan 1. Special screening for malignant neoplasms, colon - ICD9: V76.51, ICD10: Z12.11 (primary diagnosis) - COLONOSCOPY SCREENING 2. Adjustment reaction with anxiety and depression - ICD9: 309.28, ICD10: F43.23 Controlled. 3. Essential hypertension - ICD9: 401.9, ICD10: I10 - good control 4. Atherosclerosis of [place] coronary artery of [place] heart without angina pectoris - ICD9: 414.01, ICD10: I25.10 Stable. - CBC - COMP METABOLIC PANEL - LIPID PANEL BASIC Lon Gilmore MD [facility] 08-16-2021 Note HNO ID: [id number] Author: Rhona Jones LPN Service: ? Author Type: ? Type: Progress Notes Filed: 08/16/2021 5:50 PM Note Text: WSTR OPEN ACCESS QUESTIONNAIRE 1. Are you currently having any new or unusual stomach/gastrointestinal issues at this time such as constipation, diarrhea, abdominal pain, rectal bleeding etc?No 2. Do you have any difficulty swallowing? No 3. Do you have any implanted devices such as a defibrillator, pacemaker, cardiac stents or deep brain stimulator? Yes / Cardiac stent 4. Do you take any Blood thinners such as Coumadin, Plavix, Xarelto, Eliquis, Brilinta or any other blood thinner? YES:Plavix 5. Do you have any new or past cardiac (heart) or pulmonary (lung) issues? Yes / [place] in 2015 6. Do you currently use any oxygen? No 7. Have you been hospitalized in the past 6 weeks? No 8. Have you had difficulty with anesthesia previously re: ? Difficult intubation? No ? Other difficulty or allergic reaction to anesthesia other than post op N/V? No 9. Are you on dialysis? No 10. Do you have any bleeding disorders such as hemophilia or Factor 5? No 11. Are you an Insulin Dependent Diabetic? No - IF ANY OF THE TOP ELEVEN QUESTIONS ARE ANSWERED YES PLEASE SCHEDULE THE PATIENT FOR A CONSULT. N/A 12. Is the patient's BMI 40 or greater? No:Body mass index is 27.91 kg/m?.. 13. Do you take any narcotics or anti-Anxiety medications? No 14. Do you use any illegal or recreational drugs including marijuana? No 15. Any alcohol use: No. 16. Have you been diagnosed with chronic liver disease such as hepatitis or cirrhosis? No 17. Do you have a seizure disorder? No 18. Do you have ulcerative colitis or Crohn's disease? No 19. Are you or could you be ? No 20. Any other important health information we should be made aware of prior to your colonoscopy? No To be completed by LIP: Did patient have MAC anesthesia with a previous endoscopy procedure? No Patient appropriate for Open Access Colonoscopy: Yes: appropriate for Open Access Procedure Checklist: Prior to closing the encounter: ? Complete questionnaire: Yes ? Confirm Prep order has been Ordered/Pended: Yes. ? Patient's procedure could be delayed if not given the script for the prep. Please ensure the prep is escripted to pharmacy or printed. Instructions for the prep will print upon filing or pending this smartset. ? Please send all open access questionnaires to [facility] Sched Pool #[id number] [facility] 08-16-2021 History of Presen t illness Narrative This note was created using LendMeYourLiteracyter. Subjective Ladonna Fairchild is a 61 year old male. Anxiety and depression were controlled. His cardiovascular issues were controlled, and stable. He was not able to proceed with colonoscopy last year due to job and insurance change. He was willing to do so now. Review of Systems Constitutional: Negative. Respiratory: Negative. Cardiovascular: Negative. Gastrointestinal: Negative. Psychiatric/Behavioral: Negative. ACTIVE PROBLEM LIST Chronic Allergic Rhinitis Adjustment Reaction With Anxiety and Depression Atherosclerosis of [place] Coronary Artery of [place] Heart Without Angina Pectoris Hyperlipidemia Tinnitus, Bilateral Essential Hypertension PAST SURGICAL HISTORY Procedure Laterality Date COLONOSCOPY FLX DX W/COLLJ SPEC WHEN PFRMD 11/13/2010 Colonoscopy CORONARY STENT INITIAL 02/19/2015 Xience, proximal LAD LEFT HEART CATH,PERCUTANEOUS 02/19/2015 Cardiac cath, L heart TONSILLECTOMY PRIMARY/SECONDARY <AGE 12 Tonsillectomy Social History Tobacco Use Smoking status: Former Smoker Packs/day: 1.00 Years: 30.00 Pack years: 30.00 Types: Cigarettes Quit date: 02/19/2015 Years since quittin.4 Smokeless tobacco: Never Used Substance Use Topics Alcohol use: No Drug use: No Current Outpatient Medications Medication Sig escitalopram oxalate (LEXAPRO) 5 mg tablet Take 1 tablet by mouth once daily. metoprolol succinate ER (TOPROL XL) 25 mg 24 hr tablet Take 25 mg by mouth once daily. atorvastatin (LIPITOR) 40 mg tablet Take 1 tablet by mouth daily at bedtime. For cholesterol. Dr. Le clopidogrel (PLAVIX) 75 mg tablet Take 75 mg by mouth once daily. pantoprazole DR (PROTONIX) 40 mg tablet Take 1 tablet by mouth daily before breakfast. Take on empty stomach, 1/[address] Le aspirin, enteric coated (ASPIR-LOW) 81 mg EC tablet Take 1 tablet by mouth once daily. No current facility-administered medications for this visit. Objective BP 124/74 (BP Site: Left Arm, BP Position: Sitting, BP Cuff Size: Large Adult) Pulse 68 Temp 36.5 C (97.7 F) (Temporal Artery) Resp 16 Wt 76.7 kg (169 lb) BMI 27.91 kg/m Physical Exam Constitutional: Appearance: Normal appearance. Cardiovascular: Rate and Rhythm: Normal rate and regular rhythm. Heart sounds: No murmur heard. No gallop. Pulmonary: Breath sounds: Normal breath sounds. Abdominal: Palpations: Abdomen is soft. Tenderness: There is no abdominal tenderness. Musculoskeletal: Right lower leg: No edema. Left lower leg: No edema. Neurological: Mental Status: He is alert. Assessment and Plan 1. Special screening for malignant neoplasms, colon - ICD9: V76.51, ICD10: Z12.11 (primary diagnosis) - COLONOSCOPY SCREENING 2. Adjustment reaction with anxiety and depression - ICD9: 309.28, ICD10: F43.23 Controlled. 3. Essential hypertension - ICD9: 401.9, ICD10: I10 - good control 4. Atherosclerosis of [place] coronary artery of [place] heart without angina pectoris - ICD9: 414.01, ICD10: I25.10 Stable. - CBC - COMP METABOLIC PANEL - LIPID PANEL BASIC Lon Gilmore MD [facility] OPEN ACCESS QUESTIONNAIRE 1. Are you currently having any new or unusual stomach/gastrointestinal issues at this time such as constipation, diarrhea, abdominal pain, rectal bleeding etc?No 2. Do you have any difficulty swallowing? No 3. Do you have any implanted devices such as a defibrillator, pacemaker, cardiac stents or deep brain stimulator? Yes / Cardiac stent 4. Do you take any Blood thinners such as Coumadin, Plavix, Xarelto, Eliquis, Brilinta or any other blood thinner? YES:Plavix 5. Do you have any new or past cardiac (heart) or pulmonary (lung) issues? Yes / [place] in 2015 6. Do you currently use any oxygen? No 7. Have you been hospitalized in the past 6 weeks? No 8. Have you had difficulty with anesthesia previously re: Difficult intubation? No Other difficulty or allergic reaction to anesthesia other than post op N/V? No 9. Are you on dialysis? No 10. Do you have any bleeding disorders such as hemophilia or Factor 5? No 11. Are you an Insulin Dependent Diabetic? No IF ANY OF THE TOP ELEVEN QUESTIONS ARE ANSWERED YES PLEASE SCHEDULE THE PATIENT FOR A CONSULT. N/A 12. Is the patient's BMI 40 or greater? No:Body mass index is 27.91 kg/m .. 13. Do you take any narcotics or anti-Anxiety medications? No 14. Do you use any illegal or recreational drugs including marijuana? No 15. Any alcohol use: No. 16. Have you been diagnosed with chronic liver disease such as hepatitis or cirrhosis? No 17. Do you have a seizure disorder? No 18. Do you have ulcerative colitis or Crohn's disease? No 19. Are you or could you be ? No 20. Any other important health information we should be made aware of prior to your colonoscopy? No To be completed by LIP: Did patient have MAC anesthesia with a previous endoscopy procedure? No Patient appropriate for Open Access Colonoscopy: Yes: appropriate for Open Access Procedure Checklist: Prior to closing the encounter: Complete questionnaire: Yes Confirm Prep order has been Ordered/Pended: Yes. ? Patient's procedure could be delayed if not given the script for the prep. Please ensure the prep is escripted to pharmacy or printed. Instructions for the prep will print upon filing or pending this smartset. Please send all open access questionnaires to [facility] Sched Pool #[id number] documented in this encounter [facility] documented as of this encounter (statuses as of 08/16/2021) [facility]02-13-2021 History of Past illness Narrative* Problem Noted Date Resolved Date Impaired fasting blood sugar 05/13/202009/2020 Cervicalgia of ycavhwkm-hoewuvi-sndcs region 05/11/2020 Internal hemorrhoids without mention of complica tion 11/13/2010 10/08/2011 Benign neoplasm of colon 11/13/2010 016 Special screening for malignant neoplasms, colon 11/13/2010 10/08/2011 Tobacco use disorder 09/06/2010 07/06/2015 Hypertrophy of prostate with out urinary obstruction and other lower urinary tract symptoms (LUTS) 09/06/2010 10/08/2011 Other affections of shoulder region, not elsewhere classified 06/03/2008 09/06/2010 documented as of this encounter (statuses as of 08/20/2021) [facility] History of Past illness Narrative* Problem Noted Date Resolved Date Impaired fasting blood sugar 05/13/202009/2020 Cervicalgia of bujnslyi-rmubabb-kcvgy region 05/11/2020 Internal hemorrhoids without mention of complica tion 11/13/2010 10/08/2011 Benign neoplasm of colon 11/13/2010 016 Special screening for malignant neoplasms, colon 11/13/2010 10/08/2011 Tobacco use disorder 09/06/2010 07/06/2015 Hypertrophy of prostate with out urinary obstruction and other lower urinary tract symptoms (LUTS) 09/06/2010 10/08/2011 Other affections of shoulder region, not elsewhere classified 06/03/2008 09/06/2010 documented as of this encounter (statuses as of 09/28/2021) [facility] Special screening for malignant neoplasms, colon- Primary Adjustment reaction with anxiety and depression Adjustment disorder with mixed anxiety and depressed mood Essential hypertension Unspecified essential hypertension Atherosclerosis of [place] coronary artery of [place] heart without angina pectoris [facility] Special screening for malignant neoplasms, colon- Primary [facility] Outpatient Procedure (Routine) - Pending Review Specialty Diagnoses / Procedures Referred By Johanna t Referred To Contact [facility] Diagnoses Special screening for malignant neoplasms, colon Procedures COLONOSCOPY SCREENING COLONOSCOPY FLX DX W/COLLJ SPEC WHEN PFRMD Lon Gilmore MD [address] [place] [address] [facility] [address] [place] [address] Referral ID Status Reason Start Date Expiration Date Visits Requested Visits Authorized [id number] Pending Review Auto-Generat ed Referral 08/16/2021 08/16/2022 1 1 [facility] Advance Directives No Advanced Directives Records FoundDocuments on File Type Date Recorded 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 Advance Directive(s) 08/20/2021 1:39 PM Documents on File Type Date Recorded 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 Advance Directive(s) 08/20/2021 1:39 PM Reason for Referral Specialty Diagnoses / Procedures Referred By Contac t Referred To Contact General Surgery Diagnoses Special screening for malignant neoplasms, colon Procedures CONSULT TO GENERAL SURGERY OFFICE/OUTPATIENT [facility] MDM 60-74 MINUTES Lon Gilmore MD [address] [place] [address] Referral ID Status Reason Start Date Expiration Date Visits Requested Visits Authorized [id number] Authorized PCP Requested Referral 09/06/2021 09/06/2022 1 1 Summary Purpose Family History No Family History Records Found Additional Source Comments Source Comments (unrecognize d section and content) In the event this informatio n is protected by the Federal Confidentiality of Alcohol and Drug Abuse Patient Records regulations: The Federal rules restrict any use of the information to criminally investigate or prosecute any alcohol or drug abuse patient.[facility] event this information is protected by the Federal Confidentiality of Alcohol and Drug Abuse Patient Records regulations: The Federal rules restrict any use of the information to criminally investigate or prosecute any alcohol or drug abuse patient.[facility] the event this information is protected by the Federal Confidentiality of Alcohol and Drug Abuse Patient Records regulations: The Federal rules restrict any use of the information to criminally investigate or prosecute any alcohol or drug abuse patient.[facility] Reason for Visit (unrecogniz ed section and content) Reason Comments Orders Reason Comments Consult for colonscopy Care Teams (unrecognized sec tion and content) Blood Bank Coordinator Relationship Specialty Start Date End Date Lon Gilmore MD [address], [place] [id number] PCP - General 05/11/03 Blood Bank Coordinator Relationship Specialty Start Date End Date Lon Gilmore MD [address], [place] [id number] PCP - General 05/11/03 (unrecognized sect ion and content) No Status Records Found INFORMATION SOURCE (unrecogn ized section and content) FOR RECORDS PERTAINING TO PATIENTS WHO ARE OR HAVE BEEN ENROLLED IN A CHEMICAL DEPENDENCY/SUBSTANCEABUSE PROGRAM, SOME INFORMATION MAY BE OMITTED. This clinical summary was aggregated from multiple sources. Caution should be exercised in using it in the provision of clinical care. This summary normalizes information from multiple sources, and as a consequence, information in this document may materially change the coding, format and clinical context of patient data. In addition, data may be omitted in some cases. CLINICAL DECISIONS SHOULD BE BASED ON THE PRIMARY CLINICAL RECORDS. [facility] [email or web address] [facility]. provides no warranty or guarantee of the accuracy or completeness of information in this document.
== END | disposition home or self-care (01) ==
PROVIDERS: PCP Internal Medicine; Referring Provider Nurse Practitioner Family; Visit Provider Nurse Practitioner Family
DX: R00.2 Palpitations (principal); R00.0 Tachycardia, unspecified
CPT/HCPCS: 36415; 80048; 83735; 84443; 85027

== ENCOUNTER → 2024-01-13 | Outpatient (CLI) | payer BC, SELFPAY ==
--- NOTE | 2024-01-13 13:28 | CT_ITS ---
HISTORY: Lung cancer screening -- and gt; 20 pk yr hx;former smoker;asymptomatic. TECHNIQUE: Helically acquired images were obtained of the chest without contrast. A radiation dose optimization technique was used for this scan. 877 images. COMPARISON: 12/10/2022, 10/23/2021. FINDINGS: LARGE AIRWAYS: Patent. LUNGS: Mild centrilobular emphysema. Chronic mild right lower lobe scarring. Calcified right lower lobe granuloma. No new suspicious nodule. PLEURA: No pneumothorax or significant pleural effusion. HEART/PERICARDIUM: Heart within normal limits in size with coronary artery calcification. No pericardial effusion. VESSELS: Thoracic aorta nondilated. Mild atherosclerosis present. MEDIASTINUM/PARAS: No pathologically enlarged adenopathy. Small calcified mediastinal lymph nodes. UPPER ABDOMEN: Unchanged appearance. BONES: Chronic pectus excavatum and degenerative change. CT/Low Dose CT Lung Screening IMPRESSION: Lung-RADS category 1: Continue annual screening with low dose CT. Electronically Signed: Tova Kemp MD at 15:12 EDT ,
== END | disposition home or self-care (01) ==
PROVIDERS: PCP Internal Medicine; Referring Provider Nurse Practitioner Family; Visit Provider Nurse Practitioner Family
DX: Z12.2 Encounter for screening for malignant neoplasm of respiratory organs (principal); Z87.891 Personal history of nicotine dependence
CPT/HCPCS: 71271